=== PATIENT | male | born 1970 | race Caucasian/White ===

== ENCOUNTER 2019-03-04 18:39 | Emergency (ER) | payer OTHER ==
[2019-03-04 19:02] VITALS: BP 140/97
[2019-03-04] MEDS ORDERED: DIPH/PERTUSS(ACELL)/TETANUS VAC/PF 0.5 ML SYR (>=10YO) IM ONE (20:12)
--- NOTE | 2019-03-04 20:20 | ER Document Report ---
HPI - HPI Patient complains to provider of: severed thumb Time Seen by Provider: 03/04/19 20:11 Pain Level: 2 Context: 48-year-old male presents to the emergency department with chief complaint of "severed left thumb". 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 He noticed some bleeding and the junk was missing. He immediately put a towel want to stop the bleeding. Bleeding is currently controlled and it clotted up. Patient is able to move his thumb and has sensation intact to light touch. Last tetanus unknown. No other complaints Past Medical History - Social History Smoking Status: Unknown if Ever Smoked Family History: Reviewed & Not Pertinent Past Surgical History: Reports: Hx Orthopedic Surgery - L knee - Immunizations Hx Diphtheria, Pertussis, Tetanus Vaccination: Yes Vertical Provider Document - CONSTITUTIONAL Notes: PHYSICAL EXAMINATION: Reviewed vital signs and charting by RN GENERAL: Alert, interacts well. No acute distress. HEAD: Normocephalic, atraumatic. EYES: Pupils equal and round. Extraocular movements intact. NECK: Full range of motion. Trachea midline. EXTREMITIES: Moves all 4 extremities spontaneously. No edema, No cyanosis. Left thumb with 5/5 strength of flexion of the DIP and extension of the DIP, patient can make a fist, give me a thumbs up, show me the okay sign, SI LT, 2+ radial pulse, brisk cap refill PSYCH: Normal affect, normal mood. SKIN: Warm, dry, normal turgor. Lateral left thumb of the DIP with a minor avulsion, scab present, bleeding controlled, no evidence of foreign body, - INFECTION CONTROL TRAVEL OUTSIDE OF THE [place] IN LAST 30 DAYS: No Course - Re-evaluation Re-evalutation: 03/04/19 20:18 Well-appearing and patient with a small avulsion injury not amendable to suture repair. Plan is to clean the wound, dressing, give him a tetanus booster, and give him strict return precautions. - Vital Signs Vital signs: Temp Pulse Resp BP Pulse Ox 98.9 F 75 16 140/97 H 97 03/04/19 19:00 03/04/19 19:00 03/04/19 19:00 03/04/19 19:00 03/04/19 19:00 Discharge - Discharge Clinical Impression: Thumb injury Qualifiers: Encounter type: initial encounter Laterality: left Qualified Code(s): S69.92XA - Unspecified injury of left wrist, hand and finger(s), initial encounter Condition: Good Disposition: HOME, SELF-CARE Instructions: Antibiotic Ointment Protection ([facility]), Soap Cleansing ([facility]) Additional Instructions: You are seen in the emergency department this evening for a minor injury of your left thumb. Please keep the area clean with the Shur-Clens solution that we gave you 2 or 3 times a day. While you are working please keep it covered. You received a tetanus booster today. This is good for 10 years. If you develop redness at the site, purulent discharge coming from the wound, your thumb gets red hot and swollen, you develop fevers, please return to the emergency department for reevaluation as these are signs of infection.
== END 2019-03-04 20:52 | disposition home or self-care (01) ==
LOC: ER 18:39
DX: S61.012A Laceration without foreign body of left thumb without damage to nail, initial encounter (principal); W27.8XXA Contact with other nonpowered hand tool, initial encounter; Y99.0 Civilian activity done for income or pay; Z23 Encounter for immunization
CPT/HCPCS: 90715; 99282

== ENCOUNTER 2019-04-14 19:18 | Emergency (ER) | payer OTHER ==
--- NOTE | 2019-04-14 19:35 | ER Document Report ---
HPI - HPI Time Seen by Provider: 04/14/19 19:33 Pain Level: 3 Notes: Patient is a 48-year-old male with no significant past medical history aside from tobacco abuse who presents complaining of right wrist pain status post injury about 5 to 6 hours ago. Patient states that he was sitting on the toilet when he leaned over to wipe in the toilet was not bolted to the floor causing him in the toilet to tip over. Patient states that he braced his fall with his hand/wrist. Patient states that he can still move his wrist, but does have pain primarily to the ulnar side. He has not noticed any obvious swelling or bruising but feels a dullness into his fingers. Denies drug allergies. Denies any headache, fever, head injury, neck pain, URI, sore throat, chest pain, palpitations, syncope, cough, shortness of breath, wheeze, dyspnea, abdominal pain, nausea/vomiting/diarrhea, urinary retention, dysuria, hematuria, loss of control of bowel or bladder, numbness/tingling, muscle paralysis/weakness, or rash. - ROS Systems Reviewed and Negative: Yes All other systems reviewed and negative Past Medical History - Social History Smoking Status: Current Every Day Smoker Family History: Reviewed & Not Pertinent Renal/ Medical History: Denies: Hx Peritoneal Dialysis Past Surgical History: Reports: Hx Orthopedic Surgery - L knee - Immunizations Hx Diphtheria, Pertussis, Tetanus Vaccination: Yes Vertical Provider Document - CONSTITUTIONAL Agree With Documented VS: Yes Notes: PHYSICAL EXAMINATION: GENERAL: Well-appearing, well-nourished and in no acute distress. HEAD: Atraumatic, normocephalic. NECK: Normal range of motion, supple without lymphadenopathy. No midline tenderness. LUNGS: Breath sounds clear to auscultation bilaterally and equal. No wheezes rales or rhonchi. HEART: Regular rate and rhythm without murmurs, rubs, gallops. Musculoskeletal: Rt hand/wrist: No erythema, warmth, ecchymosis, deformity, or swelling noted. N/V intact distal. FROM to passive/active at the wrist. Strength 5+/5 to edger machine setter. No scaphoid tenderness. Tinel/phalen neg. + tenderness distal wrist b/l ulnar > radial. No other bony tenderness of the forearm. No tenderness to elbow/shoulder and FROM otherwise. Extremities: No cyanosis, clubbing, or edema b/l. Peripheral pulses 2+. Capillary refill less than 3 seconds. NEUROLOGICAL: Normal speech, normal gait. Normal sensory, motor exams otherwise unremarkable PSYCH: Normal mood, normal affect. SKIN: see above. No rash - INFECTION CONTROL TRAVEL OUTSIDE OF THE [place] IN LAST 30 DAYS: No Course - Re-evaluation Re-evalutation: 04/14/19 Patient is an afebrile, well-hydrated, 48-year-old male who presents to the ED with Rt wrist pain which I suspect to be a sprain versus strain. Vitals are acceptable without any significant tachycardia, tachypnea, or hypoxia. PE is otherwise unremarkable for any neurovascular compromise, obvious tendon/ligament rupture, obvious fracture/dislocation, septic joint. X-ray was unremarkable for any acute pathology. Cock-up splint provided today. Patient declined any Tylenol or ice. Patient is nontoxic-appearing. No other labs or imaging warranted at this time based on H&P. Conservative measures otherwise for symptoms. Recheck with your PCM in 3-5 days. Consider consult orthopedics. Return to the ED with any worsening/concerning symptoms otherwise as reviewed in discharge. Patient is in agreement. Discharge - Discharge Clinical Impression: Right wrist pain Condition: Stable Disposition: HOME, SELF-CARE Additional Instructions: Rest, Ice, Compression, Elevation Tylenol/ibuprofen as needed Light stretches daily Strength exercises as able Moist heat and massage may help F/u with your PCP in 3-5 days for a recheck Consider consult(s) with Orthopedics/physical therapy for ongoing/worsening symptoms Return to the ED with any worsening symptoms and/or development of fever, headache, chest pain, palpitations, syncope, shortness of breath, trouble breathing, abdominal pain, n/v/d, muscle weakness/paralysis, numbness/tingling, swelling, redness, or other worsening symptoms that are concerning to you. Prescriptions: Ibuprofen [Motrin 800 mg Tablet] 800 mg PO Q8H PRN #15 tab PRN Reason: Forms: Elevated Blood Pressure, Smoking Cessation Education Referrals: [facility] [Primary Care Provider] - Follow up as needed [facility] [Provider Group] - Follow up as needed
--- NOTE | 2019-04-14 20:26 | RADIOLOGY REPORT (SQ) ---
EXAM DESCRIPTION: Radiographs of Right wrist 3 views CLINICAL HISTORY: 48 years Male, pain s/p injury COMPARISON: None. FINDINGS: Negative for acute fracture, dislocation, or radiopaque foreign body. IMPRESSION: 1. No acute findings.
== END 2019-04-14 20:34 | disposition home or self-care (01) ==
LOC: ER 19:18
DX: M25.531 Pain in right wrist (principal); F17.200 Nicotine dependence, unspecified, uncomplicated; W18.11XA Fall from or off toilet without subsequent striking against object, initial encounter
CPT/HCPCS: 99283; 73110; L3908

== ENCOUNTER 2020-04-23 19:52 | Emergency (ER) | payer OTHER ==
[2020-04-23 19:57] VITALS: BP 139/86
[2020-04-23] MEDS ORDERED: DIPH/PERTUSS(ACELL)/TETANUS VAC/PF 0.5 ML SYR (>=10YO) IM ONE (20:01)
[2020-04-23] MEDS ORDERED: CEPHALEXIN 500 MG CAPSULE PO ONE (20:01)
--- NOTE | 2020-04-23 20:02 | ER Document Report ---
ED Medical Screen (RME) - General Chief Complaint: Finger Injury Stated Complaint: FINGER INJURY Time Seen by Provider: 04/23/20 19:57 Primary Care Provider: [facility] [Primary [facility]] - Follow up as needed Mode of Arrival: Ambulatory Notes: 49-year-old male presented to ED for injury to the right index finger about 10 AM this morning. He states he was was trying to lock a knife open it did not stay open and closed on his finger. TRAVEL OUTSIDE OF THE [place] IN LAST 30 DAYS: No - HPI Onset: This morning Onset/Duration: Intermittent Quality of pain: Sharp, Throbbing Severity: Moderate Pain Level: 2 Associated Symptoms: Other - Ration right index finger Exacerbated by: Movement Relieved by: Remaining still Similar symptoms previously: No Recently seen / treated by doctor: No - Related Data Smoking: Cigarettes, Other - ppd Frequency of alcohol use: None Drug Abuse: None Allergies/Adverse Reactions: No Known Allergies Allergy (Verified 04/14/19 19:19) Past Medical History - General Information source: Patient - Social History Cigarette use (# per day): Yes - ppd Frequency of alcohol use: None Drug Abuse: None Lives with: Family Family history: Reviewed & Not Pertinent - Past Medical History Cardiac Medical History: Reports: None Pulmonary Medical History: Reports: None EENT Medical History: Reports: None Neurological Medical History: Reports: None Endocrine Medical History: Reports: None Renal/ Medical History: Reports: None Malignancy Medical History: Reports None GI Medical History: Reports: None Musculoskeltal Medical History: Reports Hx Musculoskeletal Trauma Skin Medical History: Reports None Psychiatric Medical History: Reports: Hx Depression, Hx Post Traumatic Stress Disorder Traumatic Medical History: Reports: None Past Surgical History: Reports: Hx Orthopedic Surgery - L knee - Immunizations Hx Diphtheria, Pertussis, Tetanus Vaccination: Yes - 04/23/2020 Review of Systems - Review of Systems Constitutional: No symptoms reported EENT: No symptoms reported Cardiovascular: No symptoms reported Respiratory: No symptoms reported Gastrointestinal: No symptoms reported Genitourinary: No symptoms reported Male Genitourinary: No symptoms reported Musculoskeletal: No symptoms reported, Other - Duration right index finger Skin: Other - Laceration right index finger Hematologic/Lymphatic: No symptoms reported Neurological/Psychological: No symptoms reported Physical Exam - Vital signs Vitals: Temp Pulse Resp BP Pulse Ox 98.5 F 103 H 16 139/86 H 94 04/23/20 19:56 04/23/20 19:56 04/23/20 19:56 04/23/20 19:56 04/23/20 19:56 Interpretation: Normal - General General appearance: Appears well, Alert - HEENT Head: Normocephalic, Atraumatic Eyes: Normal Pupils: PERRL - Respiratory Respiratory status: No respiratory distress Chest status: Nontender Breath sounds: Normal Chest palpation: Normal - Cardiovascular Rhythm: Regular Heart sounds: Normal auscultation Murmur: No - Abdominal Inspection: Normal Distension: No distension Bowel sounds: Normal Tenderness: Nontender Organomegaly: No organomegaly - Back Back: Normal, Nontender - Extremities General upper extremity: Normal inspection, Nontender, Normal color, Normal ROM, Normal temperature General lower extremity: Normal inspection, Nontender, Normal color, Normal ROM, Normal temperature, Normal weight bearing. No: Oh's sign Hand: Tender, Laceration - 1 1/2 cm laceration to the right index finger, No evidence of human bite, No evidence of FB. No: Abrasion, Deformity, Dislocation, Ecchymosis, Instability, Nail injury, Swelling, Tendon deficit - Neurological Neuro grossly intact: Yes Cognition: Normal Orientation: AAOx4 [place] Coma Scale Eye Opening: Spontaneous Jeannie Coma Scale Verbal: Oriented [place] Coma Scale Motor: Obeys Commands [place] Coma Scale Total: 15 Speech: Normal Motor strength normal: LUE, RUE, LLE, RLE Sensory: Normal - Psychological Associated symptoms: Normal affect, Normal mood - Skin Skin Temperature: Warm Skin Moisture: Dry Skin Color: Normal Skin irregularity: Laceration - 1/2 cm right index finger Irregularity with: Tenderness Course - Re-evaluation Re-evalutation: 04/23/20 20:16 Patient states he was trying to close his knife and the lock part of it was would not work and the knife snapshot on his finger. It happened about 10:00 he bandaged it and then he moved his finger just before coming to the emergency room opening the wound. It is not bleeding at this time it is closed there is no signs or symptoms of infection. We have cleaned it with soap and water at the sink patted dry bacitracin will be applied with Band-Aid and then he will be given a finger splint to keep him from bending the finger and opening again. It is been too long since he cut this knife in order to suture the wound. I have given him a prescription for Keflex and Keflex in the emergency room. He states he also does not have any idea when his last tetanus shot was so he will be given tetanus immunization before being discharged. - Vital Signs Vital signs: Temp Pulse Resp BP Pulse Ox 98.5 F 103 H 16 139/86 H 94 04/23/20 19:56 04/23/20 19:56 04/23/20 19:56 04/23/20 19:56 04/23/20 19:56 Procedures - Immobilization Right Finger Time completed: 20:16 Immobilizer type: Finger protection - Laceration Performed by: RN Post-Proc Neuro Vasc Exam: Normal Alignment checked and good: Yes Doctor's Discharge - Discharge Clinical Impression: Laceration of index finger of right hand without complication Condition: Stable Disposition: HOME, SELF-CARE Additional Instructions: NON-SUTURED LACERATION: Your laceration did not require suturing. Some lacerations cannot be sutured because of increased infection risk, while others simply don't need stitches because they are shallow or very short. Your injury should be protected while it heals. Usually complete healing takes 10 to 14 days. Keep the dressing clean and dry, and change it every day. If you notice increasing pain, redness, swelling, drainage, or tender lumps in the armpit or groin above the injury, infection may be present. You should call the doctor at once. SOAP CLEANSING: Gently wash the wound daily using a mild soap (like Ivory, Phisoderm, Neutrogena). Use warm water, rubbing gently until all debris, ooze, and crusting have been washed from the wound. Allow to dry briefly (about 10 minutes) after cleaning. Repeat this cleansing at least three times a day for the first two days and then once or twice a day. ANTIBIOTIC OINTMENT PROTECTION: Your wounds are such that dressing them is not practical or optional. After cleansing, you should apply a thin coating of antibiotic ointment (Bacitracin, not Neosporin) to the wounds at least three times daily. This lessens infection risk, and may decrease the amount of scarring. Use a q-tip or dull butter knife, not your finger, to apply this ointment. Any debris or ooze which builds up in the ointment should be gently rubbed off with a sterile gauze pad. Harder crusting may need to be gently scrubbed off with a clean wash cloth with soap and warm water, perhaps applying a warm, wet wash cloth to the wound for ten minutes first. Development of redness, severe itching, or blistering may mean allergy to the ointment. See the doctor. TETANUS IMMUNIZATION GIVEN: You have been given an immunization against tetanus. Please record this in your records. In general, a booster is needed only once every 10 years. The tetanus shot protects against tetanus or "lockjaw," which is a complication of certain wound infections (the tetanus shot cannot protect against the actual infection). The immunization site may become warm and red due to local reaction. If this occurs, apply warm compresses and take aspirin or ibuprofen to reduce inflammation and discomfort. Return for evaluation if the reaction becomes severe. Cephalexin The antibiotic you've been prescribed is a member of the cephalosporin class. This type of antibiotic covers a wide variety of infections, including those of the skin, lungs, and urinary tract. It's useful for staph infections. This antibiotic is slightly similar to the penicillin family. In rare cases, a person who is allergic to penicillin will also be allergic to this medication. If you have had a severe allergic reaction to penicillin, and have not taken this antibiotic since that time, notify your doctor. Antibiotics which cover many germs ("broad spectrum" antibiotics) are more likely to cause diarrhea or "yeast" infections. Women prone to vaginal yeast problems may suffer an attack after taking this antibiotic. In infants, oral thrush (white spots "stuck" on the cheek) or yeast diaper rash may result. See your doctor if these problems occur. Call at once if you develop itching, hives, shortness of breath, or lightheadedness. Been treated with a finger splint to keep the finger from bending to let the laceration heal. Please take the splint off 3 times a day clean with soap and water rinse well pat dry apply bacitracin and splint. You will need to wear the splint for at least the next 3 to 4 days to keep the laceration from reopening. FOLLOW-UP CARE: Please return in __3___ days for an infection check and dressing change. If you have been referred to another physician for follow-up care, call that physicians office for an appointment as you were instructed. If you experience a significant change in your laceration, or if you are concerned there may be an infection (swelling, redness, drainage, increasing tenderness, red streaks, tender lumps in the armpit or groin above the laceration, or fever), return to the Emergency Department immediately re-evaluation. Prescriptions: Cephalexin Monohydrate [Keflex 500 mg Capsule] 500 mg PO Q6H 5 Days #20 capsule Forms: Elevated Blood Pressure [facility]errals: [facility] [Primary [facility] Provider] - Follow up as needed
== END 2020-04-23 20:20 | disposition home or self-care (01) ==
LOC: ER 19:52
PROC: 2W3JX1Z Immobilization of Right Finger using Splint (ICD-10-PCS; principal; 2020-04-23)
DX: S01.111A Laceration without foreign body of right eyelid and periocular area, initial encounter (principal); W26.0XXA Contact with knife, initial encounter; F17.210 Nicotine dependence, cigarettes, uncomplicated
CPT/HCPCS: 90471; 90715; 99283